=== PATIENT | female | born 1935 | race Caucasian/White ===

== ENCOUNTER 2019-06-03 00:16 | Observation (INO) ==
[2019-06-03] MEDS ORDERED: Isovue-370 500 ML BOTTLE IVP ONE (00:57)
[2019-06-03] MEDS ORDERED: *HR* FentaNYL (PF) 100 MCG/2 ML VIAL IVP ONE (01:38)
[2019-06-03 02:09] LABS: Basophils # 0.1 K/mcL (0.0-0.2); Basophils % 0.9 %; Eosinophils # 0.3 K/mcL (0.0-0.6); Eosinophils % 3.6 %; Hematocrit 35.4 % (35.3-44.9); Hemoglobin 11.5 g/dL (11.5-15.4); Immature Granulocytes % 0.4 % (0-4); Lymphocytes # 2.4 K/mcL (0.6-4.6); Lymphocytes % 31.1 %; Mean Corpuscular HGB Conc 32.5 g/dL (31.6-35.5); Mean Corpuscular Hemoglobin 30.8 pg (28.0-33.3); Mean Corpuscular Volume 94.9 fL (83.0-100.0); Mean Platelet Volume 9.6 fL (9.4-12.4); Monocytes # 0.8 K/mcL (0.0-1.3); Platelet Count 291 K/mcL (140-400); Red Blood Count 3.73 M/mcL (3.82-4.97); Red Cell Distribution Width 15.3 % (11.5-14.5); White Blood Count 7.6 K/mcL (4.3-11.1)
[2019-06-03 02:12] LABS: INR 1.1; Prothrombin Time 12.5 Seconds (9.4-12.1)
[2019-06-03 02:29] LABS: BUN/Creatinine Ratio 27 (6-26); Blood Urea Nitrogen 28 mg/dL (8-23); Calcium 9.4 mg/dL (8.6-10.3); Carbon Dioxide 31 mEq/L (23-29); Chloride 104 mEq/L (98-107); Glucose 110 mg/dL (70-105); Osmolality,Calculated 296 (280-300); Potassium 4.5 mEq/L (3.5-5.1); Sodium 140 mEq/L (136-145); eGFR For African Americans > 60 (> 60); eGFR For Non-African Americans 51 (> 60)
[2019-06-03 02:30] LABS: Troponin I < 0.03 ng/mL (< 0.04)
[2019-06-03] MEDS ORDERED: *HR* HYDROmorphone (PF) 1 MG/ML SYRINGE IVP ONE (03:50)
[2019-06-03] MEDS ORDERED: Ondansetron 4 MG/2 ML VIAL IVP ONE (04:08)
[2019-06-03] MEDS ORDERED: Naloxone 0.4 MG/ML INJ IVP PRN (09:56)
[2019-06-03] MEDS ORDERED: tiZANidine 4 MG TABLET PO PRN (14:41)
[2019-06-03] MEDS ORDERED: clonazePAM 0.5 MG TABLET PO PRN (14:41)
[2019-06-03] MEDS: Loratadine 10 MG TABLET PO SCH (15:55)
[2019-06-03] MEDS: Pregabalin 50 MG CAPSULE PO SCH (15:55)
[2019-06-03] MEDS: Magnesium Oxide 400 MG TABLET PO SCH (15:55)
[2019-06-03] MEDS: *HR* Rivaroxaban 10 MG TABLET PO SCH (15:55)
[2019-06-03] MEDS: Cholecalciferol (D-3) 1,000 UNIT (25MCG) TABLET PO SCH (15:56)
[2019-06-03] MEDS: Pregabalin 75 MG CAPSULE PO SCH (20:02)
[2019-06-04] MEDS: Magnesium Oxide 400 MG TABLET PO SCH (08:36)
[2019-06-04] MEDS: Loratadine 10 MG TABLET PO SCH (08:37)
[2019-06-04] MEDS: Pregabalin 75 MG CAPSULE PO SCH ×2 (08:40→20:16)
[2019-06-04] MEDS: Cholecalciferol (D-3) 1,000 UNIT (25MCG) TABLET PO SCH (08:40)
[2019-06-04] MEDS ORDERED: Cholecalciferol (D-3) 1,000 UNIT (25MCG) TABLET PO SCH (09:00)
[2019-06-04] MEDS ORDERED: NON-FORMULARY MEDICATION 1 EACH EACH (Potassium 99 MG) PO SCH (09:00)
[2019-06-04] MEDS ORDERED: *HR* Rivaroxaban 10 MG TABLET PO SCH (09:00)
[2019-06-04] MEDS ORDERED: Magnesium Oxide 400 MG TABLET PO SCH (09:00)
[2019-06-04] MEDS: Pregabalin 50 MG CAPSULE PO SCH (11:14)
[2019-06-04] MEDS ORDERED: Pregabalin 50 MG CAPSULE PO SCH (14:43)
[2019-06-04] MEDS: *HR* Rivaroxaban 10 MG TABLET PO SCH (16:32)
[2019-06-05 01:25] LABS: Hemoglobin 10.8 g/dL (11.5-15.4); Mean Corpuscular HGB Conc 31.8 g/dL (31.6-35.5); Mean Corpuscular Hemoglobin 30.9 pg (28.0-33.3); Mean Corpuscular Volume 97.4 fL (83.0-100.0); Mean Platelet Volume 9.6 fL (9.4-12.4); Platelet Count 256 K/mcL (140-400); Red Blood Count 3.49 M/mcL (3.82-4.97); Red Cell Distribution Width 15.3 % (11.5-14.5); White Blood Count 5.7 K/mcL (4.3-11.1)
[2019-06-05 01:46] LABS: Calcium 8.9 mg/dL (8.6-10.3); Potassium 4.4 mEq/L (3.5-5.1)
[2019-06-05 06:36] VITALS: BP 124/70
[2019-06-05] MEDS: Pregabalin 75 MG CAPSULE PO SCH (07:37)
[2019-06-05] MEDS: Loratadine 10 MG TABLET PO SCH (07:37)
[2019-06-05] MEDS: Magnesium Oxide 400 MG TABLET PO SCH (07:38)
[2019-06-05] MEDS: Cholecalciferol (D-3) 1,000 UNIT (25MCG) TABLET PO SCH (07:38)
== END 2019-06-05 10:25 | disposition home health service (06) ==
LOC: 3NENU 00:16 → EMEROOARM 00:16 → SUATTDRO 05:00 → 3NENU 05:37
PROVIDERS: ADMIT Internal Medicine; ATTEND Internal Medicine

== ENCOUNTER 2019-06-28 13:19 | Inpatient (IN) ==
[2019-06-28] MEDS ORDERED: *HR* FentaNYL (PF) 100 MCG/2 ML VIAL IVP ONE (13:39)
[2019-06-28 14:36] LABS: Basophils # 0.1 K/mcL (0.0-0.2); Basophils % 1.1 %; Eosinophils # 0.1 K/mcL (0.0-0.6); Eosinophils % 2.8 %; Hematocrit 35.9 % (35.3-44.9); Hemoglobin 11.9 g/dL (11.5-15.4); Immature Granulocytes % 0.2 % (0-4); Lymphocytes # 1.1 K/mcL (0.6-4.6); Mean Corpuscular HGB Conc 33.1 g/dL (31.6-35.5); Mean Corpuscular Hemoglobin 30.7 pg (28.0-33.3); Mean Corpuscular Volume 92.5 fL (83.0-100.0); Mean Platelet Volume 9.3 fL (9.4-12.4); Monocytes # 0.5 K/mcL (0.0-1.3); Monocytes % 9.6 %; Neutrophils # 2.9 K/mcL (1.6-8.9); Platelet Count 318 K/mcL (140-400); Red Blood Count 3.88 M/mcL (3.82-4.97); Red Cell Distribution Width 15.1 % (11.5-14.5); Segmented Neutrophils % 62.3 %; White Blood Count 4.7 K/mcL (4.3-11.1)
[2019-06-28 14:44] LABS: INR 2.2; Prothrombin Time 25.4 Seconds (9.4-12.1)
[2019-06-28 14:55] LABS: BUN/Creatinine Ratio 24 (6-26); Blood Urea Nitrogen 23 mg/dL (8-23); Calcium 9.6 mg/dL (8.6-10.3); Carbon Dioxide 30 mEq/L (23-29); Chloride 102 mEq/L (98-107); Glucose 98 mg/dL (70-105); Osmolality,Calculated 292 (280-300); Potassium 4.1 mEq/L (3.5-5.1); Sodium 139 mEq/L (136-145); eGFR For African Americans > 60 (> 60); eGFR For Non-African Americans 55 (> 60)
[2019-06-28] MEDS ORDERED: Naloxone 0.4 MG/ML INJ IVP PRN ×2 (15:52→15:54)
[2019-06-28] MEDS ORDERED: Ondansetron 4 MG/2 ML VIAL IVP PRN (15:52)
[2019-06-28] MEDS: Acetaminophen 325 MG TABLET PO SCH ×2 (17:38→23:27)
[2019-06-28] MEDS: Pregabalin 75 MG CAPSULE PO SCH (19:33)
[2019-06-28] MEDS: *HR* FentaNYL (PF) 100 MCG/2 ML VIAL IVP PRN (20:50)
[2019-06-28] MEDS ORDERED: NON-FORMULARY MEDICATION 1 EACH EACH (Calcium Carbonate/Vitamin D3 [Calcium 600 + Vit D So PO SCH (21:00)
[2019-06-29] MEDS: *HR* FentaNYL (PF) 100 MCG/2 ML VIAL IVP PRN ×4 (05:10→23:00)
[2019-06-29] MEDS: Acetaminophen 325 MG TABLET PO SCH ×3 (05:15→18:31)
[2019-06-29 06:40] LABS: Basophils # 0.1 K/mcL (0.0-0.2); Basophils % 1.5 %; Eosinophils # 0.3 K/mcL (0.0-0.6); Eosinophils % 5.8 %; Hemoglobin 11.4 g/dL (11.5-15.4); Immature Granulocytes % 0.2 % (0-4); Lymphocytes % 38.8 %; Mean Corpuscular HGB Conc 31.7 g/dL (31.6-35.5); Mean Corpuscular Hemoglobin 30.5 pg (28.0-33.3); Mean Corpuscular Volume 96.3 fL (83.0-100.0); Mean Platelet Volume 9.4 fL (9.4-12.4); Monocytes # 0.6 K/mcL (0.0-1.3); Monocytes % 11.3 %; Neutrophils # 2.2 K/mcL (1.6-8.9); Platelet Count 288 K/mcL (140-400); Red Blood Count 3.74 M/mcL (3.82-4.97); Red Cell Distribution Width 15.1 % (11.5-14.5); Segmented Neutrophils % 42.4 %; White Blood Count 5.2 K/mcL (4.3-11.1)
[2019-06-29 07:02] LABS: BUN/Creatinine Ratio 26 (6-26); Blood Urea Nitrogen 24 mg/dL (8-23); Calcium 9.7 mg/dL (8.6-10.3); Carbon Dioxide 30 mEq/L (23-29); Chloride 101 mEq/L (98-107); Glucose 92 mg/dL (70-105); Osmolality,Calculated 294 (280-300); Potassium 3.9 mEq/L (3.5-5.1); Sodium 140 mEq/L (136-145); eGFR For African Americans > 60 (> 60); eGFR For Non-African Americans 59 (> 60)
[2019-06-29 07:33] LABS: INR 1.3; Prothrombin Time 14.5 Seconds (9.4-12.1)
[2019-06-29] MEDS: Potassium Chloride Elixir 20 MEQ/15 ML UDC PO SCH (08:55)
[2019-06-29] MEDS: Cholecalciferol (D-3) 1,000 UNIT (25MCG) TABLET PO SCH (08:57)
[2019-06-29] MEDS: clonazePAM 0.5 MG TABLET PO PRN ×2 (08:58→20:37)
[2019-06-29] MEDS: Furosemide 20 MG TABLET PO SCH (08:58)
[2019-06-29] MEDS: Magnesium Oxide 400 MG TABLET PO SCH (08:58)
[2019-06-29] MEDS: *HR* Rivaroxaban 10 MG TABLET PO SCH (08:58)
[2019-06-29] MEDS: Pregabalin 75 MG CAPSULE PO SCH ×2 (08:59→20:38)
[2019-06-29] MEDS: Pregabalin 50 MG CAPSULE PO SCH (15:47)
[2019-06-30] MEDS: Acetaminophen 325 MG TABLET PO SCH ×5 (06:05→22:53)
[2019-06-30] MEDS: Pregabalin 75 MG CAPSULE PO SCH ×2 (09:23→20:04)
[2019-06-30] MEDS: *HR* Rivaroxaban 10 MG TABLET PO SCH (09:23)
[2019-06-30] MEDS: Potassium Chloride Elixir 20 MEQ/15 ML UDC PO SCH (09:24)
[2019-06-30] MEDS: Magnesium Oxide 400 MG TABLET PO SCH (09:24)
[2019-06-30] MEDS: Furosemide 20 MG TABLET PO SCH (09:25)
[2019-06-30] MEDS: Cholecalciferol (D-3) 1,000 UNIT (25MCG) TABLET PO SCH (09:31)
[2019-06-30] MEDS: Pregabalin 50 MG CAPSULE PO SCH (12:41)
[2019-06-30] MEDS: *HR* HYDROcodone/Acet 5/325 mg TABLET PO PRN (12:41)
[2019-06-30] MEDS: *HR* FentaNYL (PF) 100 MCG/2 ML VIAL IVP PRN (18:10)
[2019-07-01] MEDS: *HR* HYDROcodone/Acet 5/325 mg TABLET PO PRN ×2 (05:52→17:44)
[2019-07-01] MEDS: Acetaminophen 325 MG TABLET PO SCH ×3 (05:54→17:44)
[2019-07-01] MEDS: *HR* FentaNYL (PF) 100 MCG/2 ML VIAL IVP PRN ×2 (06:44→14:59)
[2019-07-01 08:31] LABS: Bilirubin,Urine Negative (Negative); Blood,Urine Small (Negative); Clarity,Urine Cloudy (Clear); Color,Urine Yellow (Yellow); Glucose,Urine (UA) Normal (Normal); Ketones,Urine Negative (Negative); Leukocyte Esterase,Urine Negative (Negative); Nitrite,Urine Negative (Negative); PH,Urine 6.5 pH Units (5.0-8.0); Protein,Urine Negative (Neg-Trace); Specific Gravity,Urine 1.014 (1.010-1.025); Urobilinogen,Urine Normal (Normal)
[2019-07-01 08:34] LABS: Bacteria,Urine Many per hpf (None-Few); Hyaline Casts,Urine None Seen per lpf (None-Few); RBC,Urine 0-3 per hpf (0-3); Squamous Epithelial Cell,Urine Few per lpf (None-Few); WBC,Urine 0-3 per hpf (0-3)
[2019-07-01] MEDS: Magnesium Oxide 400 MG TABLET PO SCH (09:08)
[2019-07-01] MEDS: Pregabalin 75 MG CAPSULE PO SCH ×2 (09:09→19:56)
[2019-07-01] MEDS: *HR* Rivaroxaban 10 MG TABLET PO SCH (09:09)
[2019-07-01] MEDS: Furosemide 20 MG TABLET PO SCH (09:11)
[2019-07-01] MEDS: Potassium Chloride Elixir 20 MEQ/15 ML UDC PO SCH (09:13)
[2019-07-01] MEDS: Cholecalciferol (D-3) 1,000 UNIT (25MCG) TABLET PO SCH (09:17)
[2019-07-01] MEDS: Pregabalin 50 MG CAPSULE PO SCH ×2 (09:17→13:00)
[2019-07-01] MEDS: clonazePAM 0.5 MG TABLET PO PRN (13:05)
[2019-07-02] MEDS: Acetaminophen 325 MG TABLET PO SCH ×4 (00:31→17:56)
[2019-07-02 01:27] LABS: Hemoglobin 11.6 g/dL (11.5-15.4); Mean Corpuscular HGB Conc 33.1 g/dL (31.6-35.5); Mean Corpuscular Hemoglobin 30.8 pg (28.0-33.3); Mean Corpuscular Volume 92.8 fL (83.0-100.0); Mean Platelet Volume 9.4 fL (9.4-12.4); Platelet Count 319 K/mcL (140-400); Red Blood Count 3.77 M/mcL (3.82-4.97); Red Cell Distribution Width 14.5 % (11.5-14.5); White Blood Count 6.4 K/mcL (4.3-11.1)
[2019-07-02 01:47] LABS: INR 1.7; Prothrombin Time 19.2 Seconds (9.4-12.1)
[2019-07-02 01:49] LABS: Calcium 9.5 mg/dL (8.6-10.3); Magnesium 1.7 mg/dL (1.6-2.6); Potassium 4.7 mEq/L (3.5-5.1)
[2019-07-02] MEDS: *HR* HYDROcodone/Acet 5/325 mg TABLET PO PRN (04:09)
[2019-07-02] MEDS: clonazePAM 0.5 MG TABLET PO PRN (05:32)
[2019-07-02] MEDS ORDERED: 0.9 % Sodium Chloride 1,000 ML IVC SCH (07:30)
[2019-07-02] MEDS ORDERED: *HR* HYDROcodone/Acet 5/325 mg TABLET PO ONE (07:43)
[2019-07-02] MEDS: *HR* FentaNYL (PF) 100 MCG/2 ML VIAL IVP PRN (08:07)
[2019-07-02] MEDS: Pregabalin 75 MG CAPSULE PO SCH ×2 (08:19→20:45)
[2019-07-02] MEDS: Magnesium Oxide 400 MG TABLET PO SCH (08:21)
[2019-07-02] MEDS: *HR* Rivaroxaban 10 MG TABLET PO SCH (08:21)
[2019-07-02] MEDS: Cholecalciferol (D-3) 1,000 UNIT (25MCG) TABLET PO SCH (08:21)
[2019-07-02] MEDS: Potassium Chloride Elixir 20 MEQ/15 ML UDC PO SCH (08:23)
[2019-07-02] MEDS: predniSONE 20 MG TABLET PO SCH (13:09)
[2019-07-02] MEDS: *HR* HYDROcodone/Acet 10/325 mg TABLET PO PRN (17:55)
[2019-07-03] MEDS: Acetaminophen 325 MG TABLET PO SCH ×3 (03:01→09:18)
[2019-07-03] MEDS: *HR* HYDROcodone/Acet 10/325 mg TABLET PO PRN ×2 (04:41→16:16)
[2019-07-03 05:42] LABS: BUN/Creatinine Ratio 49 (6-26); Blood Urea Nitrogen 45 mg/dL (8-23); Calcium 9.5 mg/dL (8.6-10.3); Carbon Dioxide 29 mEq/L (23-29); Chloride 96 mEq/L (98-107); Glucose 146 mg/dL (70-105); Osmolality,Calculated 284 (280-300); Potassium 4.8 mEq/L (3.5-5.1); Sodium 130 mEq/L (136-145); eGFR For African Americans > 60 (> 60); eGFR For Non-African Americans 59 (> 60)
[2019-07-03] MEDS: *HR* Rivaroxaban 10 MG TABLET PO SCH (09:16)
[2019-07-03] MEDS: predniSONE 20 MG TABLET PO SCH (09:17)
[2019-07-03] MEDS: Cholecalciferol (D-3) 1,000 UNIT (25MCG) TABLET PO SCH (09:18)
[2019-07-03] MEDS: Pregabalin 75 MG CAPSULE PO SCH (09:18)
[2019-07-03] MEDS: Magnesium Oxide 400 MG TABLET PO SCH (09:18)
[2019-07-03] MEDS: Potassium Chloride Elixir 20 MEQ/15 ML UDC PO SCH (09:19)
[2019-07-03 12:05] VITALS: BP 104/66
[2019-07-03] MEDS: Pregabalin 50 MG CAPSULE PO SCH (12:43)
== END 2019-07-03 17:38 | DRG 552 ==
LOC: EMEROOARM 13:19 → 3BNU 13:19 → SUATTDRO 15:55 → 3NENU 17:16 → 3BNU 17:44 → SUATTDRO 06-29 15:03
PROVIDERS: ADMIT Internal Medicine; ATTEND Internal Medicine

== ENCOUNTER 2019-08-20 17:07 | Inpatient (IN) ==
[2019-08-20] MEDS ORDERED: Ipratropium/Albuterol Neb 3 ML IH ONE (17:44)
[2019-08-20 17:50] LABS: Basophils # 0.1 K/mcL (0.0-0.2); Basophils % 0.9 %; Eosinophils # 0.5 K/mcL (0.0-0.6); Eosinophils % 7.5 %; Hematocrit 32.2 % (35.3-44.9); Hemoglobin 10.3 g/dL (11.5-15.4); Immature Granulocytes % 0.4 % (0-4); Lymphocytes % 13.9 %; Mean Corpuscular Hemoglobin 29.6 pg (28.0-33.3); Mean Corpuscular Volume 92.5 fL (83.0-100.0); Mean Platelet Volume 9.4 fL (9.4-12.4); Monocytes # 0.5 K/mcL (0.0-1.3); Monocytes % 7.5 %; Neutrophils # 4.9 K/mcL (1.6-8.9); Platelet Count 337 K/mcL (140-400); Red Blood Count 3.48 M/mcL (3.82-4.97); Red Cell Distribution Width 14.4 % (11.5-14.5); Segmented Neutrophils % 69.8 %; White Blood Count 7.1 K/mcL (4.3-11.1)
[2019-08-20 17:53] LABS: INR 2.2; Prothrombin Time 25.1 Seconds (9.4-12.1)
[2019-08-20 17:56] LABS: Activated Partial Thrombo Time 44.5 Seconds (26.0-36.0)
[2019-08-20 18:07] LABS: ABG Base Excess 6 mEq/L (-2 to 3); ABG HCO3 31 mEq/L (21-27); ABG Oxygen Saturation 94 % (95-98); ABG PCO2 45 mmHg (35-45); ABG PH 7.44 pH Units (7.32-7.45); ABG PO2 70 mmHg (85-104); ABG TCO2 32 mEq/L (20-26)
[2019-08-20 18:10] LABS: Alanine Aminotransferase 6 Units/L (7-52); Albumin 3.8 g/dL (3.5-5.7); Albumin/Globulin Ratio 1.4 (1.1-2.2); Alkaline Phosphatase 51 Units/L (34-104); Aspartate Amino Transferase 13 Units/L (13-39); BUN/Creatinine Ratio 20 (6-26); Bilirubin,Direct 0.1 mg/dL (0.0-0.2); Bilirubin,Indirect 0.4 mg/dL (0.0-1.0); Bilirubin,Total 0.5 mg/dL (0.3-1.0); Blood Urea Nitrogen 18 mg/dL (8-23); Calcium 9.4 mg/dL (8.6-10.3); Carbon Dioxide 28 mEq/L (23-29); Chloride 99 mEq/L (98-107); Globulin 2.7 g/dL (2.4-3.5); Glucose 96 mg/dL (70-105); Magnesium 1.7 mg/dL (1.6-2.6); Osmolality,Calculated 284 (280-300); Phosphorous 2.7 mg/dL (2.7-4.5); Potassium 4.2 mEq/L (3.5-5.1); Sodium 136 mEq/L (136-145); Total Protein 6.5 g/dL (6.4-8.9); Troponin I < 0.03 ng/mL (< 0.04); eGFR For African Americans > 60 (> 60); eGFR For Non-African Americans > 60 (> 60)
[2019-08-20] MEDS ORDERED: Benzonatate 100 MG CAPSULE PO ONE (18:41)
[2019-08-20 19:24] LABS: Bilirubin,Urine Negative (Negative); Blood,Urine Negative (Negative); Clarity,Urine Clear (Clear); Color,Urine Yellow (Yellow); Glucose,Urine (UA) Normal (Normal); Ketones,Urine Negative (Negative); Leukocyte Esterase,Urine Negative (Negative); Nitrite,Urine Negative (Negative); Protein,Urine Negative (Neg-Trace); Urobilinogen,Urine Normal (Normal)
[2019-08-20] MEDS ORDERED: Dextromethorphan Polistrx(12h) 30 MG/5 ML UDC PO ONE (19:50)
[2019-08-20] MEDS ORDERED: levoFLOXacin 750 MG TABLET PO ONE (20:24)
[2019-08-20] MEDS ORDERED: predniSONE 20 MG TABLET PO STA (20:24)
[2019-08-20] MEDS ORDERED: Isovue-370 500 ML BOTTLE IVP ONE (20:38)
[2019-08-20] MEDS ORDERED: Naloxone 0.4 MG/ML INJ IVP PRN (22:42)
[2019-08-20] MEDS: Ondansetron 4 MG/2 ML VIAL IVP PRN (23:27)
[2019-08-21] MEDS: MethylPREDNISolone 40 MG/ML VIAL IVP SCH ×4 (00:16→22:41)
[2019-08-21] MEDS: 0.9 % Sodium Chloride 1,000 ML IVC SCH ×2 (00:16→11:43)
[2019-08-21] MEDS: Ipratropium/Albuterol Neb 3 ML IH SCH ×6 (00:19→20:28)
[2019-08-21] MEDS ORDERED: Melatonin 3 MG TABLET PO SCH (01:00)
[2019-08-21 01:32] LABS: Basophils # 0.1 K/mcL (0.0-0.2); Basophils % 0.7 %; Eosinophils # 0.4 K/mcL (0.0-0.6); Eosinophils % 6.3 %; Hematocrit 32.7 % (35.3-44.9); Immature Granulocytes % 0.3 % (0-4); Lymphocytes # 0.9 K/mcL (0.6-4.6); Lymphocytes % 12.6 %; Mean Corpuscular HGB Conc 30.6 g/dL (31.6-35.5); Mean Corpuscular Hemoglobin 29.4 pg (28.0-33.3); Mean Corpuscular Volume 96.2 fL (83.0-100.0); Mean Platelet Volume 9.5 fL (9.4-12.4); Monocytes # 0.3 K/mcL (0.0-1.3); Neutrophils # 5.3 K/mcL (1.6-8.9); Platelet Count 305 K/mcL (140-400); Red Cell Distribution Width 14.5 % (11.5-14.5); Segmented Neutrophils % 76.1 %
[2019-08-21 01:35] LABS: INR 1.9; Prothrombin Time 22.1 Seconds (9.4-12.1)
[2019-08-21 01:54] LABS: BUN/Creatinine Ratio 20 (6-26); Blood Urea Nitrogen 16 mg/dL (8-23); Calcium 9.4 mg/dL (8.6-10.3); Carbon Dioxide 27 mEq/L (23-29); Chloride 100 mEq/L (98-107); Glucose 96 mg/dL (70-105); Magnesium 1.7 mg/dL (1.6-2.6); Osmolality,Calculated 283 (280-300); Phosphorous 2.9 mg/dL (2.7-4.5); Sodium 136 mEq/L (136-145); eGFR For African Americans > 60 (> 60); eGFR For Non-African Americans > 60 (> 60)
[2019-08-21] MEDS ORDERED: Acetaminophen 325 MG TABLET PO ONE (02:56)
[2019-08-21] MEDS ORDERED: levoFLOXacin 750 MG/150 ML 750 MG/150 ML BAG IVPB SCH (09:00)
[2019-08-21] MEDS ORDERED: Menthol 9.1 MG LOZENGE PO PRN (10:53)
[2019-08-21] MEDS: GuaiFENesin Liq 200 MG/10 ML UDC PO PRN ×3 (11:42→22:40)
[2019-08-21] MEDS: Acetaminophen 325 MG TABLET PO PRN ×2 (11:42→22:41)
[2019-08-21 11:57] LABS: Adenovirus Not Detected (Not Detect); Bordetella Pertussis Not Detected (Not Detect); Chlamydophila pneumoniae Not Detected (Not Detect); Coronavirus 229E Not Detected (Not Detect); Coronavirus HKU1 Not Detected (Not Detect); Coronavirus NL63 Not Detected (Not Detect); Coronavirus OC43 Not Detected (Not Detect); Human Metapneumovirus Not Detected (Not Detect); Human Rhinovirus/Enterovirus Not Detected (Not Detect); Influenza A Subtype 2009 H1 Not Detected (Not Detect); Influenza B Not Detected (Not Detect); Mycoplasma pneumoniae Not Detected (Not Detect); Parainfluenza Virus 1 Not Detected (Not Detect); Parainfluenza Virus 2 Not Detected (Not Detect); Parainfluenza Virus 3 Not Detected (Not Detect); Parainfluenza Virus 4 Not Detected (Not Detect); Respiratory Syncytial Virus Not Detected (Not Detect)
[2019-08-21] MEDS ORDERED: *HR* HYDROcodone/Acet 5/325 mg TABLET PO PRN (12:41)
[2019-08-21] MEDS ORDERED: *HR* Rivaroxaban 10 MG TABLET PO SCH (17:00)
[2019-08-21] MEDS: Pregabalin 75 MG CAPSULE PO SCH (20:07)
[2019-08-22] MEDS: Ipratropium/Albuterol Neb 3 ML IH SCH ×7 (00:44→23:53)
[2019-08-22 01:04] LABS: Hematocrit 29.6 % (35.3-44.9); Hemoglobin 9.6 g/dL (11.5-15.4); Mean Corpuscular HGB Conc 32.4 g/dL (31.6-35.5); Mean Corpuscular Volume 92.5 fL (83.0-100.0); Mean Platelet Volume 9.7 fL (9.4-12.4); Platelet Count 322 K/mcL (140-400); Red Cell Distribution Width 14.5 % (11.5-14.5)
[2019-08-22 01:28] LABS: BUN/Creatinine Ratio 23 (6-26); Blood Urea Nitrogen 20 mg/dL (8-23); Calcium 9.6 mg/dL (8.6-10.3); Carbon Dioxide 28 mEq/L (23-29); Chloride 104 mEq/L (98-107); Glucose 138 mg/dL (70-105); Osmolality,Calculated 295 (280-300); Potassium 4.3 mEq/L (3.5-5.1); Sodium 140 mEq/L (136-145); eGFR For African Americans > 60 (> 60); eGFR For Non-African Americans > 60 (> 60)
[2019-08-22] MEDS ORDERED: Furosemide 20 MG TABLET PO SCH (09:00)
[2019-08-22] MEDS: MethylPREDNISolone 40 MG/ML VIAL IVP SCH (10:55)
[2019-08-22] MEDS: Pregabalin 75 MG CAPSULE PO SCH ×2 (10:55→21:13)
[2019-08-22] MEDS: Aspirin Enteric Coated 81 MG Tablet PO SCH (10:56)
[2019-08-22] MEDS: Ondansetron 4 MG/2 ML VIAL IVP PRN (10:56)
[2019-08-22] MEDS: GuaiFENesin Liq 200 MG/10 ML UDC PO PRN (10:59)
[2019-08-22] MEDS: Pregabalin 50 MG CAPSULE PO SCH (15:47)
[2019-08-22] MEDS: predniSONE 20 MG TABLET PO SCH (15:47)
[2019-08-22] MEDS: *HR* Rivaroxaban 15 MG TABLET PO SCH (15:47)
[2019-08-22] MEDS: tiZANidine 4 MG TABLET PO PRN (21:18)
[2019-08-23] MEDS: Ipratropium/Albuterol Neb 3 ML IH SCH ×6 (03:20→23:28)
[2019-08-23 05:52] LABS: Hematocrit 30.4 % (35.3-44.9); Hemoglobin 9.5 g/dL (11.5-15.4); Mean Corpuscular HGB Conc 31.3 g/dL (31.6-35.5); Mean Corpuscular Hemoglobin 29.8 pg (28.0-33.3); Mean Corpuscular Volume 95.3 fL (83.0-100.0); Mean Platelet Volume 9.5 fL (9.4-12.4); Platelet Count 311 K/mcL (140-400); Red Blood Count 3.19 M/mcL (3.82-4.97); Red Cell Distribution Width 14.6 % (11.5-14.5)
[2019-08-23 05:53] LABS: White Blood Count 9.6 K/mcL (4.3-11.1)
[2019-08-23 06:13] LABS: BUN/Creatinine Ratio 35 (6-26); Blood Urea Nitrogen 37 mg/dL (8-23); Calcium 8.8 mg/dL (8.6-10.3); Carbon Dioxide 27 mEq/L (23-29); Chloride 103 mEq/L (98-107); Glucose 122 mg/dL (70-105); Osmolality,Calculated 294 (280-300); Potassium 4.2 mEq/L (3.5-5.1); Sodium 137 mEq/L (136-145); eGFR For African Americans > 60 (> 60); eGFR For Non-African Americans 50 (> 60)
[2019-08-23] MEDS: Pregabalin 75 MG CAPSULE PO SCH ×2 (10:32→21:21)
[2019-08-23] MEDS: predniSONE 20 MG TABLET PO SCH (10:32)
[2019-08-23] MEDS: Benzonatate 100 MG CAPSULE PO PRN ×2 (10:32→21:21)
[2019-08-23] MEDS: levoFLOXacin 750 MG/150 ML 750 MG/150 ML BAG IVPB SCH (10:33)
[2019-08-23] MEDS: Aspirin Enteric Coated 81 MG Tablet PO SCH (10:33)
[2019-08-23] MEDS ORDERED: 0.9 % Sodium Chloride 500 ML IVC SCH (12:30)
[2019-08-23] MEDS: Pregabalin 50 MG CAPSULE PO SCH (14:50)
[2019-08-23] MEDS: *HR* Rivaroxaban 15 MG TABLET PO SCH (14:50)
[2019-08-23] MEDS: GuaiFENesin Liq 200 MG/10 ML UDC PO PRN (15:01)
[2019-08-23] MEDS: tiZANidine 4 MG TABLET PO PRN (21:21)
[2019-08-24] MEDS: GuaiFENesin Liq 200 MG/10 ML UDC PO PRN (02:24)
[2019-08-24 02:31] LABS: Hematocrit 30.6 % (35.3-44.9); Hemoglobin 9.8 g/dL (11.5-15.4); Mean Corpuscular Hemoglobin 29.7 pg (28.0-33.3); Mean Corpuscular Volume 92.7 fL (83.0-100.0); Mean Platelet Volume 9.4 fL (9.4-12.4); Platelet Count 328 K/mcL (140-400); Red Cell Distribution Width 14.6 % (11.5-14.5); White Blood Count 9.1 K/mcL (4.3-11.1)
[2019-08-24 02:54] LABS: Calcium 8.7 mg/dL (8.6-10.3); Potassium 4.1 mEq/L (3.5-5.1)
[2019-08-24] MEDS: Ipratropium/Albuterol Neb 3 ML IH SCH ×6 (03:06→23:44)
[2019-08-24] MEDS ORDERED: 0.9 % Sodium Chloride 500 ML IVC SCH (07:45)
[2019-08-24] MEDS: Pregabalin 75 MG CAPSULE PO SCH ×2 (09:26→21:03)
[2019-08-24] MEDS: Aspirin Enteric Coated 81 MG Tablet PO SCH (09:26)
[2019-08-24] MEDS: predniSONE 20 MG TABLET PO SCH (09:26)
[2019-08-24] MEDS ORDERED: clonazePAM 0.5 MG TABLET PO PRN (09:55)
[2019-08-24] MEDS: GuaiFENesin Liq 200 MG/10 ML UDC PO SCH ×2 (12:20→17:07)
[2019-08-24] MEDS: Pregabalin 50 MG CAPSULE PO SCH (12:20)
[2019-08-24] MEDS: *HR* Rivaroxaban 15 MG TABLET PO SCH (17:07)
[2019-08-24] MEDS: Acetaminophen 325 MG TABLET PO PRN (21:04)
[2019-08-24] MEDS: tiZANidine 4 MG TABLET PO PRN (21:05)
[2019-08-24] MEDS: Benzonatate 100 MG CAPSULE PO PRN (21:10)
[2019-08-25] MEDS: GuaiFENesin Liq 200 MG/10 ML UDC PO SCH ×2 (00:57→05:27)
[2019-08-25 02:45] LABS: Hematocrit 32.5 % (35.3-44.9); Hemoglobin 10.4 g/dL (11.5-15.4); Mean Corpuscular Hemoglobin 29.6 pg (28.0-33.3); Mean Corpuscular Volume 92.6 fL (83.0-100.0); Mean Platelet Volume 9.5 fL (9.4-12.4); Platelet Count 348 K/mcL (140-400); Red Blood Count 3.51 M/mcL (3.82-4.97); Red Cell Distribution Width 14.6 % (11.5-14.5)
[2019-08-25 03:00] LABS: BUN/Creatinine Ratio 31 (6-26); Blood Urea Nitrogen 29 mg/dL (8-23); Calcium 8.8 mg/dL (8.6-10.3); Carbon Dioxide 27 mEq/L (23-29); Chloride 103 mEq/L (98-107); Glucose 115 mg/dL (70-105); Osmolality,Calculated 295 (280-300); Potassium 3.9 mEq/L (3.5-5.1); Sodium 139 mEq/L (136-145); eGFR For African Americans > 60 (> 60); eGFR For Non-African Americans 56 (> 60)
[2019-08-25] MEDS: Ipratropium/Albuterol Neb 3 ML IH SCH ×3 (03:41→11:35)
[2019-08-25] MEDS: Pregabalin 75 MG CAPSULE PO SCH (08:30)
[2019-08-25] MEDS: predniSONE 20 MG TABLET PO SCH (08:30)
[2019-08-25] MEDS: levoFLOXacin 750 MG/150 ML 750 MG/150 ML BAG IVPB SCH (08:31)
[2019-08-25] MEDS: Aspirin Enteric Coated 81 MG Tablet PO SCH (08:32)
[2019-08-25] MEDS ORDERED: Furosemide 20 MG TABLET PO SCH (09:29)
[2019-08-25 10:31] VITALS: BP 136/63
== END 2019-08-25 12:07 | disposition home health service (06) | DRG 191 ==
LOC: 3BNU 17:07 → EMEROOARM 17:07 → 3BNU 22:52
PROVIDERS: ADMIT Student in an Organized Health Care Education/Training Program; ATTEND Student in an Organized Health Care Education/Training Program

== ENCOUNTER 2019-09-23 16:28 | Inpatient (IN) ==
[2019-09-23] MEDS ORDERED: Ipratropium/Albuterol Neb 3 ML IH ONE ×2 (16:49→17:55)
[2019-09-23] MEDS ORDERED: Isovue-370 500 ML BOTTLE IVP ONE (17:00)
[2019-09-23 17:26] LABS: Hemoglobin 10.1 g/dL (11.5-15.4); Immature Granulocytes % 0.5 % (0-4); Lymphocytes # 0.8 K/mcL (0.6-4.6); Lymphocytes % 8.2 %; Mean Corpuscular HGB Conc 31.6 g/dL (31.6-35.5); Mean Corpuscular Hemoglobin 28.4 pg (28.0-33.3); Mean Corpuscular Volume 89.9 fL (83.0-100.0); Mean Platelet Volume 9.4 fL (9.4-12.4); Monocytes # 0.4 K/mcL (0.0-1.3); Neutrophils # 8.9 K/mcL (1.6-8.9); Platelet Count 373 K/mcL (140-400); Red Blood Count 3.56 M/mcL (3.82-4.97); Red Cell Distribution Width 14.5 % (11.5-14.5); Segmented Neutrophils % 87.3 %; White Blood Count 10.2 K/mcL (4.3-11.1)
[2019-09-23 17:36] LABS: INR 1.5; Prothrombin Time 17.1 Seconds (9.4-12.1)
[2019-09-23 17:38] LABS: Activated Partial Thrombo Time 34.2 Seconds (26.0-36.0)
[2019-09-23] MEDS ORDERED: MethylPREDNISolone 40 MG/ML VIAL IVP ONE (17:55)
[2019-09-23 18:05] LABS: Bilirubin,Urine Negative (Negative); Blood,Urine Negative (Negative); Clarity,Urine Clear (Clear); Color,Urine Yellow (Yellow); Glucose,Urine (UA) Normal (Normal); Ketones,Urine Negative (Negative); Leukocyte Esterase,Urine Trace (Negative); Nitrite,Urine Negative (Negative); PH,Urine 6.5 pH Units (5.0-8.0); Protein,Urine Negative (Neg-Trace); Specific Gravity,Urine 1.007 (1.010-1.025); Urobilinogen,Urine Normal (Normal)
[2019-09-23 18:08] LABS: Bacteria,Urine None Seen per hpf (None-Few); Hyaline Casts,Urine None Seen per lpf (None-Few); Squamous Epithelial Cell,Urine Moderate per lpf (None-Few); WBC,Urine 0-3 per hpf (0-3)
[2019-09-23 18:39] LABS: BUN/Creatinine Ratio 24 (6-26); Blood Urea Nitrogen 23 mg/dL (8-23); Calcium 9.2 mg/dL (8.6-10.3); Carbon Dioxide 26 mEq/L (23-29); Chloride 99 mEq/L (98-107); Glucose 106 mg/dL (70-105); Osmolality,Calculated 278 (280-300); Potassium 4.3 mEq/L (3.5-5.1); Sodium 132 mEq/L (136-145); Troponin I < 0.03 ng/mL (< 0.04); eGFR For African Americans > 60 (> 60); eGFR For Non-African Americans 56 (> 60)
[2019-09-23] MEDS ORDERED: Benzonatate 100 MG CAPSULE PO ONE (20:34)
[2019-09-23] MEDS ORDERED: Naloxone 0.4 MG/ML INJ IVP PRN (21:22)
[2019-09-23] MEDS ORDERED: Albuterol 2.5 MG/3 ML NEBULIZER IH PRN (21:22)
[2019-09-23] MEDS ORDERED: Benzonatate 100 MG CAPSULE PO PRN (21:27)
[2019-09-23] MEDS: Ipratropium/Albuterol Neb 3 ML IH SCH (22:14)
[2019-09-23 22:33] LABS: ABG Base Excess 4 mEq/L (-2 to 3); ABG HCO3 29 mEq/L (21-27); ABG Oxygen Saturation 93 % (95-98); ABG PCO2 43 mmHg (35-45); ABG PH 7.43 pH Units (7.32-7.45); ABG PO2 67 mmHg (85-104); ABG TCO2 30 mEq/L (20-26)
[2019-09-24] MEDS ORDERED: Benzonatate 100 MG CAPSULE PO PRN (00:52)
[2019-09-24] MEDS: Ipratropium/Albuterol Neb 3 ML IH SCH ×4 (03:15→22:39)
[2019-09-24 04:15] LABS: Basophils % 0.1 %; Hematocrit 32.2 % (35.3-44.9); Hemoglobin 10.4 g/dL (11.5-15.4); Immature Granulocytes % 0.8 % (0-4); Lymphocytes # 0.8 K/mcL (0.6-4.6); Lymphocytes % 8.3 %; Mean Corpuscular HGB Conc 32.3 g/dL (31.6-35.5); Mean Corpuscular Hemoglobin 29.3 pg (28.0-33.3); Mean Corpuscular Volume 90.7 fL (83.0-100.0); Mean Platelet Volume 9.2 fL (9.4-12.4); Monocytes # 0.4 K/mcL (0.0-1.3); Monocytes % 4.2 %; Neutrophils # 7.9 K/mcL (1.6-8.9); Platelet Count 359 K/mcL (140-400); Red Blood Count 3.55 M/mcL (3.82-4.97); Red Cell Distribution Width 14.5 % (11.5-14.5); Segmented Neutrophils % 86.6 %; White Blood Count 9.1 K/mcL (4.3-11.1)
[2019-09-24 04:34] LABS: Alanine Aminotransferase 7 Units/L (7-52); Albumin 3.6 g/dL (3.5-5.7); Albumin/Globulin Ratio 1.3 (1.1-2.2); Alkaline Phosphatase 52 Units/L (34-104); Aspartate Amino Transferase 12 Units/L (13-39); BUN/Creatinine Ratio 23 (6-26); Bilirubin,Total 0.3 mg/dL (0.3-1.0); Blood Urea Nitrogen 22 mg/dL (8-23); Calcium 9.1 mg/dL (8.6-10.3); Carbon Dioxide 29 mEq/L (23-29); Chloride 106 mEq/L (98-107); Globulin 2.8 g/dL (2.4-3.5); Glucose 103 mg/dL (70-105); Magnesium 1.9 mg/dL (1.6-2.6); Osmolality,Calculated 288 (280-300); Phosphorous 3.2 mg/dL (2.7-4.5); Potassium 4.1 mEq/L (3.5-5.1); Sodium 137 mEq/L (136-145); Total Protein 6.4 g/dL (6.4-8.9); eGFR For African Americans > 60 (> 60); eGFR For Non-African Americans 55 (> 60)
[2019-09-24 04:36] LABS: % Iron Saturation 2 % (15-50); Iron 10 mcg/dL (50-170); Transferrin 304 mg/dL (203-362)
[2019-09-24 04:54] LABS: Ferritin 16 ng/mL (10-120)
[2019-09-24 05:00] LABS: Folate 16.7 ng/mL (3.0-16.0)
[2019-09-24] MEDS: Furosemide 40 MG/4 ML VIAL IVP SCH ×2 (06:28→21:43)
[2019-09-24 08:43] LABS: Estimated Average Glucose 131 mg/dl
[2019-09-24] MEDS ORDERED: predniSONE 20 MG TABLET PO SCH (09:00)
[2019-09-24] MEDS: *HR* Rivaroxaban 10 MG TABLET PO SCH (09:23)
[2019-09-24] MEDS: Pregabalin 75 MG CAPSULE PO SCH ×2 (09:23→21:44)
[2019-09-24] MEDS: lisinopriL 10 MG TABLET PO SCH (09:23)
[2019-09-24] MEDS ORDERED: Iron Sucrose Complex 400 MG in 0.9 % Sodium Chloride 250 ML IVPB ONE (09:39)
[2019-09-24] MEDS ORDERED: clonazePAM 0.5 MG TABLET PO PRN (09:40)
[2019-09-24] MEDS ORDERED: GuaiFENesin/Codeine Oral Soln 5 ML UDC PO PRN (12:51)
[2019-09-24] MEDS: Pregabalin 50 MG CAPSULE PO SCH (13:46)
[2019-09-24 14:33] LABS: Adenovirus Not Detected (Not Detect); Bordetella Pertussis Not Detected (Not Detect); Chlamydophila pneumoniae Not Detected (Not Detect); Coronavirus 229E Not Detected (Not Detect); Coronavirus HKU1 Not Detected (Not Detect); Coronavirus NL63 Not Detected (Not Detect); Coronavirus OC43 Not Detected (Not Detect); Human Metapneumovirus Not Detected (Not Detect); Human Rhinovirus/Enterovirus Not Detected (Not Detect); Influenza A Subtype 2009 H1 Not Detected (Not Detect); Influenza B Not Detected (Not Detect); Mycoplasma pneumoniae Not Detected (Not Detect); Parainfluenza Virus 1 Not Detected (Not Detect); Parainfluenza Virus 2 Not Detected (Not Detect); Parainfluenza Virus 3 Not Detected (Not Detect); Parainfluenza Virus 4 Not Detected (Not Detect); Respiratory Syncytial Virus Not Detected (Not Detect)
[2019-09-24] MEDS: MethylPREDNISolone 40 MG/ML VIAL IVP SCH (17:38)
[2019-09-24] MEDS: polyethylene glycoL 3350 17 GM POWD.PACK PO SCH (18:36)
[2019-09-25] MEDS: Ipratropium/Albuterol Neb 3 ML IH SCH ×2 (03:43→10:31)
[2019-09-25 04:25] LABS: Basophils % 0.1 %; Hemoglobin 10.3 g/dL (11.5-15.4); Immature Granulocytes % 0.7 % (0-4); Lymphocytes # 0.8 K/mcL (0.6-4.6); Mean Corpuscular HGB Conc 32.2 g/dL (31.6-35.5); Mean Corpuscular Hemoglobin 29.3 pg (28.0-33.3); Mean Corpuscular Volume 91.2 fL (83.0-100.0); Mean Platelet Volume 9.6 fL (9.4-12.4); Monocytes # 0.8 K/mcL (0.0-1.3); Monocytes % 7.5 %; Neutrophils # 8.7 K/mcL (1.6-8.9); Platelet Count 344 K/mcL (140-400); Red Blood Count 3.51 M/mcL (3.82-4.97); Red Cell Distribution Width 14.6 % (11.5-14.5); Segmented Neutrophils % 83.7 %; White Blood Count 10.4 K/mcL (4.3-11.1)
[2019-09-25 04:42] LABS: Magnesium 1.9 mg/dL (1.6-2.6); Phosphorous 3.6 mg/dL (2.7-4.5); Potassium 3.9 mEq/L (3.5-5.1)
[2019-09-25] MEDS: MethylPREDNISolone 40 MG/ML VIAL IVP SCH (05:49)
[2019-09-25] MEDS: polyethylene glycoL 3350 17 GM POWD.PACK PO SCH (08:31)
[2019-09-25] MEDS: lisinopriL 10 MG TABLET PO SCH (08:32)
[2019-09-25] MEDS: Furosemide 40 MG/4 ML VIAL IVP SCH (08:32)
[2019-09-25] MEDS: Pregabalin 75 MG CAPSULE PO SCH (08:32)
[2019-09-25] MEDS: *HR* Rivaroxaban 10 MG TABLET PO SCH (08:32)
[2019-09-25 10:27] VITALS: BP 123/72
[2019-09-25] MEDS: Pregabalin 50 MG CAPSULE PO SCH (11:55)
== END 2019-09-25 12:34 | disposition home health service (06) | DRG 190 ==
LOC: EMEROOARM 16:28 → 3BNU 16:28 → SUATTDRO 20:45 → 3BNU 21:15
PROVIDERS: ADMIT Family Medicine; ATTEND Internal Medicine

== ENCOUNTER 2020-01-25 08:26 | Inpatient (IN) ==
[~2020-01-25 08:26] MED LIST: Hydrocortisone Sodium Succ 100 MG/2 ML VIAL IVP ONE; Ondansetron ODT 4 MG TAB.RAPDIS SL ONE
[2020-01-25] MEDS ORDERED: Clindamycin 900 MG/50 ML 900 MG/50 ML IV.SOLN IVPB ONE ×2 (08:52→09:45)
[2020-01-25] MEDS: Ringers Solution, Lactated 1,000 ML IVC SCH ×4 (09:17→20:43)
[2020-01-25] MEDS ORDERED: Hydrocortisone Sodium Succ 100 MG/2 ML VIAL ONE (09:45)
[2020-01-25] MEDS ORDERED: Ondansetron ODT 4 MG TAB.RAPDIS ONE ×2 (09:48→09:50)
[2020-01-25] MEDS ORDERED: Ondansetron ODT 4 MG TAB.RAPDIS SL ONE (09:51)
[2020-01-25] MEDS ORDERED: Pregabalin 75 MG CAPSULE PO ONE (10:00)
[2020-01-25] MEDS ORDERED: Acetaminophen IV 1,000 MG/100 ML BAG IVPB ONE (10:00)
[2020-01-25] MEDS ORDERED: *HR* FentaNYL (PF) 100 MCG/2 ML VIAL ONE ×2 (10:02→12:20)
[2020-01-25] MEDS ORDERED: *HR* Succinylcholine 200 MG/10 ML VIAL IVP ONE (10:02)
[2020-01-25] MEDS ORDERED: Dexamethasone 4 MG/ML VIAL ONE (10:02)
[2020-01-25] MEDS ORDERED: *HR* Propofol 200 MG/20 ML VIAL IVP ONE (10:02)
[2020-01-25] MEDS ORDERED: Ondansetron 4 MG/2 ML VIAL ONE (10:02)
[2020-01-25] MEDS ORDERED: Pregabalin 75 MG CAPSULE ONE (10:16)
[2020-01-25] MEDS ORDERED: Acetaminophen IV 1,000 MG/100 ML BAG ONE (10:17)
[2020-01-25] MEDS ORDERED: Vancomycin 1,000 MG VIAL ONE (10:39)
[2020-01-25] MEDS ORDERED: Ethanol\\Acetic Acid\\Na Ace\\Ben 1,000 ML IRRIG.SOLN IR ONE (10:39)
[2020-01-25 10:55] LABS: Prothrombin Time 11.6 Seconds (9.4-12.1)
[2020-01-25 10:57] LABS: Activated Partial Thrombo Time 38.2 Seconds (26.0-36.0)
[2020-01-25] MEDS ORDERED: EPHEDrine 50 MG/ML VIAL ONE (11:10)
[2020-01-25] MEDS ORDERED: Albuterol 2.5 MG/3 ML NEBULIZER IH PRN (12:16)
[2020-01-25] MEDS: *HR* FentaNYL (PF) 100 MCG/2 ML VIAL IVP PRN ×3 (12:22→12:38)
[2020-01-25 12:57] LABS: Hematocrit 37.2 % (35.3-44.9); Hemoglobin 11.5 g/dL (11.5-15.4)
[2020-01-25] MEDS ORDERED: Sennosides 8.6 MG TABLET PO PRN (13:15)
[2020-01-25] MEDS ORDERED: HYDROcodone BIT/Homatropine 5 MG TABLET PO PRN (13:15)
[2020-01-25] MEDS ORDERED: Dextrose Gel 15 GM/37.5 ML TUBE PO PRN ×2 (13:15)
[2020-01-25] MEDS ORDERED: MOM Conc 10 ML UD.LIQ PO PRN (13:15)
[2020-01-25] MEDS ORDERED: *HR* Dextrose 50 % in Water (Vial) 50 ML VIAL IVP PRN (13:15)
[2020-01-25] MEDS ORDERED: *HR* OxyCODONE Immed Rel 5 MG TABLET PO PRN (13:15)
[2020-01-25] MEDS ORDERED: *HR* FentaNYL (PF) 100 MCG/2 ML VIAL IVP PRN (13:15)
[2020-01-25] MEDS ORDERED: Ipratropium/Albuterol Neb 3 ML IH PRN (13:15)
[2020-01-25] MEDS ORDERED: clonazePAM 0.5 MG TABLET PO PRN (13:15)
[2020-01-25] MEDS ORDERED: tiZANidine 4 MG TABLET PO PRN (13:15)
[2020-01-25] MEDS ORDERED: *HR* Promethazine 25 MG/ML VIAL IVP PRN (13:15)
[2020-01-25] MEDS ORDERED: polyethylene glycoL 3350 17 GM POWD.PACK PO PRN (13:15)
[2020-01-25] MEDS ORDERED: D5% in Water 1,000 ML IVC PRN (13:15)
[2020-01-25] MEDS ORDERED: Furosemide 20 MG TABLET PO PRN (13:15)
[2020-01-25] MEDS ORDERED: Naloxone 0.4 MG/ML INJ IVP PRN (13:15)
[2020-01-25] MEDS: Insulin LISPRO 300 UNITS/3 ML VIAL SQ SCH ×3 (15:03→23:35)
[2020-01-25] MEDS: Pregabalin 50 MG CAPSULE PO SCH (15:05)
[2020-01-25] MEDS: Clindamycin 900 MG/50 ML 900 MG/50 ML IV.SOLN IVPB SCH ×2 (17:23→23:55)
[2020-01-25] MEDS: Ascorbic Acid 500 MG TABLET PO SCH (17:23)
[2020-01-25] MEDS: Ondansetron 4 MG/2 ML VIAL IVP PRN (19:17)
[2020-01-25] MEDS ORDERED: Ringers Solution, Lactated 1,000 ML IVC ONE (19:25)
[2020-01-25] MEDS ORDERED: Scopolamine Patch 1.5 MG PATCH.TD72 TD ONE (19:47)
[2020-01-25] MEDS ORDERED: Albumin 25% 25gram/100mL 25 GM/100 ML IV.SOLN ONE (19:54)
[2020-01-25] MEDS ORDERED: Albumin 25% 25gram/100mL 25 GM/100 ML IV.SOLN IVPB ONE (19:56)
[2020-01-25 20:04] LABS: Basophils % 0.1 %; Hemoglobin 10.3 g/dL (11.5-15.4); Immature Granulocytes % 0.4 % (0-4); Lymphocytes # 0.5 K/mcL (0.6-4.6); Lymphocytes % 6.4 %; Mean Corpuscular HGB Conc 31.2 g/dL (31.6-35.5); Mean Corpuscular Hemoglobin 30.7 pg (28.0-33.3); Mean Corpuscular Volume 98.2 fL (83.0-100.0); Mean Platelet Volume 9.8 fL (9.4-12.4); Monocytes # 0.3 K/mcL (0.0-1.3); Monocytes % 4.3 %; Neutrophils # 6.8 K/mcL (1.6-8.9); Platelet Count 214 K/mcL (140-400); Red Blood Count 3.36 M/mcL (3.82-4.97); Red Cell Distribution Width 15.7 % (11.5-14.5); Segmented Neutrophils % 88.8 %; White Blood Count 7.7 K/mcL (4.3-11.1)
[2020-01-25 20:11] LABS: INR 1.1; Prothrombin Time 12.3 Seconds (9.4-12.1)
[2020-01-25 20:14] LABS: Activated Partial Thrombo Time 27.5 Seconds (26.0-36.0)
[2020-01-25 20:26] LABS: Albumin 3.1 g/dL (3.5-5.7); Albumin/Globulin Ratio 1.6 (1.1-2.2); Bilirubin,Total 0.5 mg/dL (0.3-1.0); Calcium 8.2 mg/dL (8.6-10.3); Globulin 1.9 g/dL (2.4-3.5); Potassium 4.1 mEq/L (3.5-5.1)
[2020-01-25] MEDS: Pregabalin 75 MG CAPSULE PO SCH (22:29)
[2020-01-25] MEDS: 0.9 % Sodium Chloride 1,000 ML IVC SCH (23:36)
[2020-01-26 00:41] LABS: Hematocrit 33.3 % (35.3-44.9); Hemoglobin 10.2 g/dL (11.5-15.4)
[2020-01-26] MEDS: Ringers Solution, Lactated 1,000 ML IVC SCH ×2 (01:51→15:54)
[2020-01-26 06:02] LABS: Basophils % 0.2 %; Hematocrit 31.4 % (35.3-44.9); Hemoglobin 9.7 g/dL (11.5-15.4); Immature Granulocytes % 0.3 % (0-4); Lymphocytes # 0.6 K/mcL (0.6-4.6); Lymphocytes % 5.2 %; Mean Corpuscular HGB Conc 30.9 g/dL (31.6-35.5); Mean Corpuscular Hemoglobin 30.8 pg (28.0-33.3); Mean Corpuscular Volume 99.7 fL (83.0-100.0); Mean Platelet Volume 9.7 fL (9.4-12.4); Monocytes # 0.8 K/mcL (0.0-1.3); Monocytes % 7.5 %; Neutrophils # 9.5 K/mcL (1.6-8.9); Platelet Count 208 K/mcL (140-400); Red Blood Count 3.15 M/mcL (3.82-4.97); Red Cell Distribution Width 15.8 % (11.5-14.5); Segmented Neutrophils % 86.8 %; White Blood Count 10.9 K/mcL (4.3-11.1)
[2020-01-26 06:28] LABS: Calcium 8.5 mg/dL (8.6-10.3); Chol/HDL Ratio 2.4 (0-4.9); Magnesium 1.8 mg/dL (1.6-2.6); Potassium 4.4 mEq/L (3.5-5.1)
[2020-01-26 06:41] LABS: Thyroid Stimulating Hormone 0.527 mcIU/mL (0.340-5.600)
[2020-01-26] MEDS: Insulin LISPRO 300 UNITS/3 ML VIAL SQ SCH ×4 (08:10→21:31)
[2020-01-26] MEDS ORDERED: lisinopriL 10 MG TABLET PO SCH (09:00)
[2020-01-26] MEDS ORDERED: NON-FORMULARY MEDICATION 1 EACH EACH (Potassium 99 MG) PO SCH (09:00)
[2020-01-26] MEDS ORDERED: NON-FORMULARY MEDICATION 1 EACH EACH (Omega-3/Dha/Epa/Fish Oil [Fish Oil 1,000 Mg Softgel] PO SCH (09:00)
[2020-01-26] MEDS ORDERED: Isovue-370 500 ML BOTTLE IVP ONE (09:22)
[2020-01-26] MEDS ORDERED: Aspirin Enteric Coated 81 MG Tablet PO SCH (09:24)
[2020-01-26] MEDS ORDERED: Ringers Solution, Lactated 1,000 ML IVC ONE (09:26)
[2020-01-26] MEDS: Ascorbic Acid 500 MG TABLET PO SCH ×2 (10:16→15:38)
[2020-01-26] MEDS: Pregabalin 75 MG CAPSULE PO SCH ×2 (10:16→19:30)
[2020-01-26] MEDS: Multivit/Ca/Min/Fe/FA 1 TAB TABLET PO SCH (10:16)
[2020-01-26] MEDS: Cholecalciferol (D-3) 1,000 UNIT (25MCG) TABLET PO SCH (10:16)
[2020-01-26] MEDS: *HR* Rivaroxaban 10 MG TABLET PO SCH (10:16)
[2020-01-26] MEDS: Loratadine 10 MG TABLET PO SCH (10:16)
[2020-01-26 10:52] LABS: Adenovirus Not Detected (Not Detect); Bordetella Pertussis Not Detected (Not Detect); Chlamydophila pneumoniae Not Detected (Not Detect); Coronavirus 229E Not Detected (Not Detect); Coronavirus HKU1 Not Detected (Not Detect); Coronavirus NL63 Not Detected (Not Detect); Coronavirus OC43 Not Detected (Not Detect); Human Metapneumovirus Not Detected (Not Detect); Human Rhinovirus/Enterovirus Not Detected (Not Detect); Influenza A Subtype 2009 H1 Not Detected (Not Detect); Influenza B Not Detected (Not Detect); Mycoplasma pneumoniae Not Detected (Not Detect); Parainfluenza Virus 1 Not Detected (Not Detect); Parainfluenza Virus 2 Not Detected (Not Detect); Parainfluenza Virus 3 Not Detected (Not Detect); Parainfluenza Virus 4 Not Detected (Not Detect); Respiratory Syncytial Virus Not Detected (Not Detect); SARS-CoV-2 Not Detected (Not Detect)
[2020-01-26] MEDS: Pregabalin 50 MG CAPSULE PO SCH (11:17)
[2020-01-26] MEDS: 0.9 % Sodium Chloride 1,000 ML IVC SCH (11:27)
[2020-01-26] MEDS: Ertapenem 1,000 MG in 0.9 % Sodium Chloride Mini Bag 100 ML IVPB SCH (11:28)
[2020-01-26 12:49] LABS: Adenovirus F 40/41 PCR Not detected (Not detect); Astrovirus PCR Not detected (Not detect); C.difficile Toxin A/B Gene PCR Not detected (Not detect); Campylobacter by PCR Not detected (Not detect); Cryptosporidium by PCR Not detected (Not detect); Cyclospora cayetanensis PCR Not detected (Not detect); E. coli O157 by PCR Not detected (Not detect); Entamoeba histolytica PCR Not detected (Not detect); Enteroaggregative E.coli(EAEC) Not detected (Not detect); Enteropathogenic E.coli(EPEC) Not detected (Not detect); Enterotoxigenic E.coli (ETEC) Not detected (Not detect); Giardia lamblia PCR Not detected (Not detect); Norovirus GI/GII PCR Not detected (Not detect); Plesiomonas shigelloides PCR Not detected (Not detect); Rotavirus A PCR Not detected (Not detect); Salmonella PCR Not detected (Not detect); Sapovirus PCR Not detected (Not detect); Shig/EnteroinvasiveE coli EIEC Not detected (Not detect); Shigalike tox-prod E coli STEC Not detected (Not detect); Vibrio PCR Not detected (Not detect); Vibrio cholerae PCR Not detected (Not detect); Yersinia enterocolitica PCR Not detected (Not detect)
[2020-01-26 13:44] LABS: Hematocrit 29.7 % (35.3-44.9); Hemoglobin 9.1 g/dL (11.5-15.4)
[2020-01-26] MEDS ORDERED: 0.9 % Sodium Chloride 250 ML IVC SCH (14:15)
[2020-01-26 15:31] LABS: Hematocrit 31.2 % (35.3-44.9); Hemoglobin 9.3 g/dL (11.5-15.4)
[2020-01-26 21:32] LABS: Hematocrit 32.9 % (35.3-44.9); Hemoglobin 10.2 g/dL (11.5-15.4)
[2020-01-27 02:08] LABS: Basophils % 0.3 %; Eosinophils # 0.1 K/mcL (0.0-0.6); Eosinophils % 0.5 %; Hematocrit 32.7 % (35.3-44.9); Hemoglobin 10.4 g/dL (11.5-15.4); Immature Granulocytes % 0.5 % (0-4); Lymphocytes # 1.1 K/mcL (0.6-4.6); Lymphocytes % 9.7 %; Mean Corpuscular HGB Conc 31.8 g/dL (31.6-35.5); Mean Corpuscular Hemoglobin 31.4 pg (28.0-33.3); Mean Corpuscular Volume 98.8 fL (83.0-100.0); Mean Platelet Volume 9.9 fL (9.4-12.4); Monocytes % 9.2 %; Neutrophils # 8.8 K/mcL (1.6-8.9); Platelet Count 153 K/mcL (140-400); Red Blood Count 3.31 M/mcL (3.82-4.97); Red Cell Distribution Width 15.9 % (11.5-14.5); Segmented Neutrophils % 79.8 %
[2020-01-27 02:26] LABS: BUN/Creatinine Ratio 29 (6-26); Blood Urea Nitrogen 27 mg/dL (8-23); Calcium 8.3 mg/dL (8.6-10.3); Carbon Dioxide 27 mEq/L (23-29); Chloride 104 mEq/L (98-107); Glucose 92 mg/dL (70-105); Osmolality,Calculated 289 (280-300); Potassium 4.5 mEq/L (3.5-5.1); Sodium 137 mEq/L (136-145); eGFR For African Americans > 60 (> 60); eGFR For Non-African Americans 58 (> 60)
[2020-01-27] MEDS: Ringers Solution, Lactated 1,000 ML IVC SCH (02:32)
[2020-01-27] MEDS: Ondansetron 4 MG/2 ML VIAL IVP PRN (06:35)
[2020-01-27] MEDS: Insulin LISPRO 300 UNITS/3 ML VIAL SQ SCH ×4 (07:48→20:17)
[2020-01-27] MEDS: Loratadine 10 MG TABLET PO SCH (07:59)
[2020-01-27] MEDS: Ascorbic Acid 500 MG TABLET PO SCH ×2 (07:59→16:55)
[2020-01-27] MEDS: Pregabalin 75 MG CAPSULE PO SCH ×2 (08:00→20:17)
[2020-01-27] MEDS: Multivit/Ca/Min/Fe/FA 1 TAB TABLET PO SCH (08:00)
[2020-01-27] MEDS: Cholecalciferol (D-3) 1,000 UNIT (25MCG) TABLET PO SCH (08:01)
[2020-01-27] MEDS: Ertapenem 1,000 MG in 0.9 % Sodium Chloride Mini Bag 100 ML IVPB SCH (10:39)
[2020-01-27] MEDS: 0.9 % Sodium Chloride 1,000 ML IVC SCH (11:49)
[2020-01-27] MEDS: Pregabalin 50 MG CAPSULE PO SCH (11:51)
[2020-01-27] MEDS: metroNIDAZOLE 500 MG TABLET PO SCH ×2 (17:02→20:19)
[2020-01-28 05:23] LABS: Hematocrit 29.7 % (35.3-44.9); Hemoglobin 9.3 g/dL (11.5-15.4); Mean Corpuscular HGB Conc 31.3 g/dL (31.6-35.5); Mean Corpuscular Hemoglobin 30.5 pg (28.0-33.3); Mean Corpuscular Volume 97.4 fL (83.0-100.0); Mean Platelet Volume 9.7 fL (9.4-12.4); Platelet Count 145 K/mcL (140-400); Red Blood Count 3.05 M/mcL (3.82-4.97); Red Cell Distribution Width 15.9 % (11.5-14.5); White Blood Count 8.5 K/mcL (4.3-11.1)
[2020-01-28 05:43] LABS: BUN/Creatinine Ratio 24 (6-26); Blood Urea Nitrogen 16 mg/dL (8-23); Calcium 8.5 mg/dL (8.6-10.3); Carbon Dioxide 27 mEq/L (23-29); Chloride 105 mEq/L (98-107); Glucose 95 mg/dL (70-105); Magnesium 1.8 mg/dL (1.6-2.6); Osmolality,Calculated 289 (280-300); Potassium 4.1 mEq/L (3.5-5.1); Sodium 139 mEq/L (136-145); eGFR For African Americans > 60 (> 60); eGFR For Non-African Americans > 60 (> 60)
[2020-01-28] MEDS: Insulin LISPRO 300 UNITS/3 ML VIAL SQ SCH ×2 (07:56→12:31)
[2020-01-28] MEDS: Pregabalin 75 MG CAPSULE PO SCH (08:38)
[2020-01-28] MEDS: Cholecalciferol (D-3) 1,000 UNIT (25MCG) TABLET PO SCH (08:38)
[2020-01-28] MEDS: metroNIDAZOLE 500 MG TABLET PO SCH ×2 (08:39→15:12)
[2020-01-28] MEDS: *HR* Rivaroxaban 10 MG TABLET PO SCH (08:39)
[2020-01-28] MEDS: Multivit/Ca/Min/Fe/FA 1 TAB TABLET PO SCH (08:39)
[2020-01-28] MEDS: Loratadine 10 MG TABLET PO SCH (08:40)
[2020-01-28] MEDS: Ascorbic Acid 500 MG TABLET PO SCH (08:40)
[2020-01-28 10:17] VITALS: BP 108/58
== END 2020-01-28 16:35 | DRG 469 ==
LOC: SAMDAY 08:26 → 3NENU 13:11 → 2NNU 01-26 10:47 → 3NENU 01-28 06:11
PROVIDERS: ADMIT Orthopaedic Surgery; ATTEND Orthopaedic Surgery